=== PATIENT | female | born 1955 | race American Indian/Alaskan Native ===

== ENCOUNTER 2018-01-21 10:39 | Outpatient (CLI) | payer OTHER ==
[~2018-01-21 10:39] MED LIST: COZAAR25 MG; SYNTHROID50 MCG
== END 2018-01-21 13:08 | disposition home or self-care (01) ==
LOC: MAMO-SONO 10:39
DX: Z12.31 Encounter for screening mammogram for malignant neoplasm of breast (principal)

== ENCOUNTER 2020-08-24 12:34 | Outpatient (CLI) | payer OTHER | END 2020-08-24 15:09 | disposition home or self-care (01) | LOC: MAMO-SONO 12:34 | PROVIDERS: ATTEND General Practice | DX: Z12.31 Encounter for screening mammogram for malignant neoplasm of breast (principal); N64.59 Other signs and symptoms in breast ==

== ENCOUNTER 2021-12-05 09:17 | Outpatient (CLI) | payer OTHER | END 2021-12-05 09:36 | disposition home or self-care (01) | LOC: MAMO-SONO 09:17 | PROVIDERS: ATTEND General Practice | DX: Z12.31 Encounter for screening mammogram for malignant neoplasm of breast (principal) ==

== ENCOUNTER 2023-04-21 10:35 | Outpatient (CLI) | payer OTHER | END 2023-04-21 10:40 | disposition home or self-care (01) | LOC: MAMO-SONO 10:35 | PROVIDERS: ATTEND Internal Medicine Endocrinology, Diabetes & Metabolism | DX: Z12.31 Encounter for screening mammogram for malignant neoplasm of breast (principal) ==

== ENCOUNTER 2024-11-11 09:27 | Outpatient (CLI) | payer OTHER | END 2024-11-11 09:33 | disposition home or self-care (01) | LOC: MAMO-SONO 09:27 | PROVIDERS: ATTEND Internal Medicine Endocrinology, Diabetes & Metabolism | DX: N64.0 Fissure and fistula of nipple (principal); Z12.31 Encounter for screening mammogram for malignant neoplasm of breast ==